=== PATIENT | male | born 2000 | race Caucasian/White ===

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

== ENCOUNTER → 2021-04-19 09:35 | Outpatient (CLI) | payer OTHER, SELFPAY | PROVIDERS: Visit Provider Nurse Practitioner | DX: Z20.822 Contact with and (suspected) exposure to COVID-19 (principal) | CPT/HCPCS: C9803; U0003; U0005 ==

== ENCOUNTER 2021-10-11 13:38 | Emergency (ER) | payer OTHER, SELFPAY ==
[2021-10-11 13:38] VITALS: BP 132/85; PULSE 94; RESP 19; TEMP 36.8; O2SAT 97; BMI 28.0
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
--- NOTE | 2021-10-11 13:42 | PC.NURSE ---
Notified rad of xray
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
--- NOTE | 2021-10-11 14:06 | PC.NURSE ---
Returned call to Rad to remind of Xray order on pt. They advised someone was on their way
--- NOTE | 2021-10-11 14:09 | PC.NURSE ---
Pt to rad
--- NOTE | 2021-10-11 14:48 | CT_ITS ---
FINAL REPORT CLINICAL HISTORY: trauma FINDINGS: CT RIGHT ANKLE WITHOUT CONTRAST TECHNIQUE: Axial, reformatted, and 3D images were obtained of the right ankle. This study was performed with techniques to keep radiation doses as low as reasonably achievable, (ALARA). Individualized dose reduction techniques using automated exposure control or adjustment of mA and/or kV according to the patient's size were employed. FINDINGS: There is a transverse fracture the medial malleolus with 4 mm of distraction. There is a small chip fracture along the medial border of the talus. No other fracture is identified. There is soft tissue swelling about the ankle. IMPRESSION: Fractures as above. Reviewed, Interpreted and Dictated by Adelso Chen III, MD Transcribed by Dulce Machado Authenticated by Adelso Chen III, MD on 10/11/2021 04:42:29 PM [facility]
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
--- NOTE | 2021-10-11 14:49 | PC.NURSE ---
rad notified of CT orders
[2021-10-11 14:53] VITALS: BP 147/79; PULSE 78; RESP 18; TEMP 36.8; O2SAT 98; BMI 28.0
--- NOTE | 2021-10-11 14:53 | PC.NURSE ---
MD at bedside speaking with patient and mother
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
[2021-10-11 15:20] LABS: Basophils # 0.1 K/mm3 (0-0.2); Basophils % 0.9 % (0.1-2.0); Eosinophils # 0.1 K/mm3 (0.0-0.4); Eosinophils % 0.9 % (0.1-12.0); Hematocrit 44.8 % (42.0-52.0); Hemoglobin 14.3 g/dL (14.1-18.0); Lymphocytes # 1.5 K/mm3 (0.7-4.5); Lymphocytes % 11.5 % (10-50); Mean Corpuscular Hemoglobin 28.7 pg (27.0-31.2); Mean Corpuscular Volume 89.7 fl (80-94); Monocytes # 0.7 K/mm3 (0.1-1.0); Monocytes % 5.4 % (1.7-9.3); Neutrophils # 10.6 K/mm3 (1.8-7.8); Neutrophils % 81.3 % (37.0-80.0); Platelet Count 409 K/mm3 (142-424); Red Blood Count 4.99 M/mm3 (4.60-6.20); White Blood Count 13.1 K/mm3 (4.5-13.0)
--- NOTE | 2021-10-11 15:27 | PC.NURSE ---
pt return from CT
[2021-10-11 15:31] VITALS: BP 110/89; PULSE 88; O2SAT 98
[2021-10-11 15:40] LABS: Anion Gap 12.8 mEq/L (5-15); Blood Urea Nitrogen 18 mg/dl (9-20); Calcium 9.5 mg/dl (8.4-10.2); Carbon Dioxide 27 mmol/L (22.0-30.0); Chloride 106 mmol/L (98-107); Creatinine Clearance Estimated 144 mL/min (50-200); Estimated Glomerular Filt Rate 95 ml/min (>60); GFR (African American) 115 ML/MIN (>60); Glucose 105 mg/dl (74-100); Potassium 3.8 mmoL/L (3.5-5.1); Sodium 142 mmol/L (136-145)
--- NOTE | 2021-10-11 15:48 | PC.NURSE ---
VAL SPENCER on phone with Dr. Jackson
[2021-10-11 16:00] VITALS: BP 116/74; PULSE 103; O2SAT 96
--- NOTE | 2021-10-11 16:05 | PC.NURSE ---
requested that radiology power share images to [facility], spoke with Felecia
--- NOTE | 2021-10-11 16:11 | PC.NURSE ---
contacting [facility] for possible transfer, on hold at this time
--- NOTE | 2021-10-11 16:28 | PC.NURSE ---
Dr. Wharton speaking with SAUNDRA Harrell with [facility]
[2021-10-11 16:30] VITALS: BP 117/73; PULSE 114; O2SAT 97
--- NOTE | 2021-10-11 16:44 | PC.NURSE ---
JAKY SPENCER at placing splint on pt jyotsna moctezuma assisting.
[2021-10-11 18:08] VITALS: BP 117/73; PULSE 114; RESP 16; TEMP 36.8; O2SAT 98
== END 2021-10-11 18:10 | disposition short-term general hospital (02) ==
LOC: UTC 13:41 → ER 14:37
PROVIDERS: Emergency Provider Emergency Medicine; PCP Family Medicine
DX: S82.51XA Displaced fracture of medial malleolus of right tibia, initial encounter for closed fracture (principal); S92.901A Unspecified fracture of right foot, initial encounter for closed fracture; W30.89XA Contact with other specified agricultural machinery, initial encounter; Y92.73 Farm field as the place of occurrence of the external cause
CPT/HCPCS: 29515; 73590; 73610; 73630; 73700; 80048; 85025; 96372; 96375; 96376; 99284; J2405

== ENCOUNTER → 2021-10-19 18:35 | Outpatient (CLI) | payer OTHER, SELFPAY | PROVIDERS: PCP Family Medicine | DX: Z01.812 Encounter for preprocedural laboratory examination (principal); Z11.52 Encounter for screening for COVID-19; S82.54XA Nondisplaced fracture of medial malleolus of right tibia, initial encounter for closed fracture | CPT/HCPCS: C9803; U0003; U0005 ==

== ENCOUNTER 2022-02-01 14:45 | Emergency (ER) | payer OTHER, SELFPAY ==
--- NOTE | 2022-02-01 14:48 | XR_ITS ---
FINAL REPORT CLINICAL HISTORY: FALL, POSTERIOR ANKLE PAIN FINDINGS: Right ankle Three views were obtained. Postoperative changes are identified. No soft tissue abnormality is identified. IMPRESSION: Postsurgical changes with no acute process. Reviewed, Interpreted and Dictated by Adelso Chen III, MD Transcribed by Nia Colon Authenticated and [facility]
--- NOTE | 2022-02-01 14:48 | XR_ITS ---
FINAL REPORT CLINICAL HISTORY: FALL, POSTERIOR ANKLE PAIN FINDINGS: Right foot Three views were obtained. There are postoperative changes of the midfoot, 1st, 2nd, and 3rd metatarsals and medial malleolus. The bones are osteopenic. IMPRESSION: Postsurgical changes as above. Reviewed, Interpreted and Dictated by Adelso Chen III, MD Transcribed by Nia Colon Authenticated and [facility]
[2022-02-01 14:50] VITALS: BP 155/95; PULSE 102; RESP 16; TEMP 36.8; O2SAT 98; BMI 28.8
--- NOTE | 2022-02-01 15:37 | HMH.EDUTC ---
[facility] Disposition Clinical Impression: Ankle pain Qualifiers: Chronicity: unspecified Laterality: right Qualified Code(s): M25.571 - Pain in right ankle and joints of right foot Disposition: Home, Self-Care Condition on Discharge: Good Additional Instructions: Wear walking boot as instructed Follow up with Your Orthopedic Doctor that did your surgery Return if needed Straight to ER if any life threatening symptoms Referrals: Kaur Graves MD [Primary Care Provider] - As needed Time of Disposition: 15:40 Medical Decision Making - Rickey Inquiry Pt receiving controlled substance: No Rcikey was queried for this patient: No Vital Signs: 02/01/22 14:50 Temperature 98.2 F Temperature Source Oral Pulse Rate [Right Brachial] 102 H Respiratory Rate 16 Blood Pressure [Right Arm] 155/95 H Blood Pressure Mean [Right Arm] 115 Blood Pressure Source [Right Arm] Automatic Cuff Blood Pressure Position [Right Arm] Sitting 02 Sat by Pulse Oximetry 98 Oxygen Delivery Method Room Air - Radiology Data #1 Image(s): Ankle Image Reviewed: Yes I have reviewed radiologist's interpretation IMPRESSION: Postsurgical changes with no acute process. #2 Image(s): Foot/Toes Image Reviewed: Yes I have reviewed radiologist's interpretation IMPRESSION: Postsurgical changes as above. [facility] HPI - General Stated complaint: Ankle pain Time Seen by Provider: 02/01/22 15:00 Mode of Arrival: Ambulatory Source of Information: Patient Limitations: No Limitations Description of Symptoms (Recalled from Triage Doc. by RN): PATIENT C/O RIGHT ANKLE PAIN AFTER FALLING ON SATURDAY AND FEELING A POP HEENT Symptoms (Recalled from RN notes): No Resp Symptoms (Recalled from RN notes): No Skin Symptoms (Recalled from RN notes): No MS Symptoms (Recalled from RN notes): Yes Functional Status (Recalled from RN notes): WNL - History of Present Illness Provider Complaint: Patient states that he fell on Saturday getting out the shoulder and felt a pop in his right ankle that he had surgery on a couple months ago States that since then he has been having pain and swelling and wanted to get it checked to make sure he didnt rebreak it - Related Data Allergies Allergy/AdvReac Type Severity Reaction Status Date / Time No Known Allergies Allergy Verified 02/01/22 15:07 - Worker's Comp Is this a Worker's Comp case?: No [facility] History - Hepatitis A Screen Attestation statement:: This patient has been screened for Hepatitis A risk factors. I have reviewed the patient's past medical history: Yes - Social History Alcohol Intake: never Occupational Status: other Housing: house ROS Obtained: Yes All systems reviewed & no additional complaints, Yes Systems reviewed as appropriate & no additional complaints - Constitutional Constitutional: Reports system reviewed and no additional complaints, except as docu - ENT Ears, Nose, Mouth, and Throat: Reports system reviewed and no additional complaints, except as docu - Cardiovascular Cardiovascular: Reports system reviewed and no additional complaints, except as docu - Respiratory Respiratory: Reports system reviewed and no additional complaints, except as docu - Gastrointestinal Gastrointestingal: Reports: system reviewed and no additional complaints, except as docu - Allergic/Immunologic Comments: Pain and swelling in right ankle after feeling a pop on Saturday Physical Exam - General General appearance: alert, in no apparent distress - Respiratory Respiratory exam: Present: normal lung sounds bilaterally. Absent: respiratory distress - Cardiovascular Cardiovascular exam: Present: regular rate, normal rhythm. Absent: JVD - Abdominal Exam Abdominal exam: Present: soft, normal bowel sounds. Absent: distention, tenderness, guarding - Expanded Lower Extremity Exam Right Ankle exam: Present: tenderness, swelling. Absent: erythema Foot/toe exam: Present
[2022-02-01 15:40] VITALS: BP 155/95; PULSE 102; RESP 16; TEMP 36.8; O2SAT 98
== END 2022-02-01 15:43 | disposition home or self-care (01) ==
PROVIDERS: Emergency Provider Nurse Practitioner; PCP Family Medicine
DX: M25.571 Pain in right ankle and joints of right foot (principal)
CPT/HCPCS: 73610; 73630; 99212; G0463

== ENCOUNTER 2022-04-09 16:00 | Outpatient (RCR) | payer OTHER, SELFPAY | END 2022-04-09 16:05 | disposition home or self-care (01) | LOC: PT 16:00 | PROVIDERS: PCP Family Medicine; Visit Provider Orthopaedic Surgery | DX: S92.901D Unspecified fracture of right foot, subsequent encounter for fracture with routine healing (principal); S82.54XA Nondisplaced fracture of medial malleolus of right tibia, initial encounter for closed fracture; S97.81XA Crushing injury of right foot, initial encounter | CPT/HCPCS: 97016; 97110; 97112; 97163; 97164; 97530 ==

== ENCOUNTER 2024-08-27 22:33 | Observation (INO) | payer BC, OTHER, SELFPAY ==
[2024-08-27 22:42] VITALS: BP 160/112; PULSE 109; RESP 16; TEMP 37.1; O2SAT 98; BMI 34.7
--- NOTE | 2024-08-27 22:45 | PC.NURSE ---
Pt awake alert and oriented Skin pink warm and dry Resp full and easy Speech clear and appropriate. Pt's urine tea colored Report to edda ALEXANDER
[2024-08-27 23:08] VITALS: BP 146/86; PULSE 101; O2SAT 98
[2024-08-27 23:20] LABS: Basophils # 0.1 K/mm3 (0-0.2); Basophils % 0.4 % (0.1-2.0); Eosinophils # 0.2 K/mm3 (0.0-0.4); Eosinophils % 1.3 % (0.1-12.0); Hematocrit 43.9 % (42.0-52.0); Hemoglobin 14.7 g/dL (14.1-18.0); Lymphocytes # 2.5 K/mm3 (0.7-4.5); Lymphocytes % 17.8 % (10-50); Mean Corpuscular HGB Conc 33.5 g/dL (31.8-35.4); Mean Corpuscular Hemoglobin 28.3 pg (27.0-31.2); Mean Corpuscular Volume 84.4 fl (80-94); Mean Platelet Volume 9.2 fl (7.4-10.4); Monocytes # 1.2 K/mm3 (0.1-1.0); Monocytes % 8.1 % (1.7-9.3); Neutrophils # 10.2 K/mm3 (1.8-7.8); Platelet Count 409 K/mm3 (142-424); Red Cell Distribution Width 13.2 % (11.5-17.5); White Blood Count 14.2 K/mm3 (4.8-10.8)
--- NOTE | 2024-08-27 23:20 | HMH.EDGENADL ---
Discharge Plan Disposition Patient Disposition: Admitted Clinical Impressions Clinical Impression: Rhabdomyolysis Discharge ED Provider: Tariq Bishop Adult HPI General Chief complaint: PAIN Stated complaint: Dark urine Time Seen by Provider: 08/27/24 22:37 Mode of Arrival: Ambulatory Source of Information: Patient Description of Symptoms (Recalled from ER Triage Doc. by RN): Pt started working out 3 days ago now has dark urine History of Present Illness HPI narrative: 24-year-old male without significant past medical history presents for dark urine. He has been working out for the last 3 days which is new for him. He does have some muscle soreness. He feels like he has been staying hydrated but says he has not upped his fluid intake since working out. He has worked out approximately an hour a day. He denies any urinary symptoms besides dark urine. No dysuria. No flank pain. He has not had any new or different medications besides his bupropion and hydroxyzine. Related Data Previous Rx's ?Medication ?Instructions ?Recorded hydroxyzine HCl 25 mg tablet 50 mg (2 x 25 mg) PO HS PRN 07/08/24 Sleep/anxiety #60 tabs bupropion HCl 100 mg tablet,12 hr 100 mg PO .Q Evening #90 ea 08/12/24 sustained-release (Wellbutrin SR) bupropion HCl 200 mg tablet,12 hr 200 mg PO QAM #90 ea 08/12/24 sustained-release Allergies Allergy/AdvReac Type Severity Reaction Status Date / Time No Known Allergies Allergy Verified 08/12/24 11:41 [facility] Disclaimer: The information contained in this section may have been updated after the patient was seen, as this information can be updated by other users. Medical History ADHD Depression Surgical History Hx of foot surgery Social History Smoking Status: Never smoker alcohol intake: former year quit: 2024 substance use type: denies use current occupational status: employed Travel in the last 8 weeks: None housing: house Have you lived/traveled outside US in past 30 days?: No Contact w/someone who lives/traveled outside US past 30 days?: No Exposure to someone with infectious disease in past 14 days?: No Do you have a fever (greater than 100.4 F or 38 C)?: No Have you tested positive for COVID-19: No Exposed to someone with COVID-19 in past 14 days?: No Do you have a sore throat?: No Do you have a cough?: No Do you have any weakness?: No Do you have any diarrhea?: No Are you experiencing any unusual bleeding?: No Do you have any muscle aches/pain?: No Do you have any abdominal pain?: No Are you experiencing loss of taste or smell?: No Other Medical History Have you received the Flu Vaccine for this season: No Have you received the Pneumonia Vaccine: No ROS Obtained: Yes All systems reviewed & no additional complaints except as documented Physical Exam General General appearance: alert and in no apparent distress Head Head exam: atraumatic and normocephalic Eye Eye exam: Present normal appearance, PERRL and EOMI ENT ENT exam: Present normal oropharynx and normal external ear exam Neck Neck exam: Present normal inspection and full ROM Chest Chest inspection: Present normal inspection and symmetric chest wall rise; Absent tenderness Respiratory Respiratory exam: Present normal lung sounds bilaterally; Absent respiratory distress Cardiovascular Cardiovascular exam: Present regular rate and normal rhythm Abdominal Exam Abdominal exam: Present soft; Absent distention, tenderness or guarding Extremities Exam Extremities exam: Present normal inspection; Absent edema or joint swelling Back Exam Back exam: Present normal inspection; Absent tenderness Neurological Exam Neurological exam: Present alert and oriented X3; Absent motor sensory deficit Psychiatric Psychiatric exam: Present normal affect and normal mood Skin Skin exam: Present warm, dry and normal color Lymphatic Lymphatic Findings: no adenopathy Medical Decision Making Medical Records Medical records reviewed: Yes I reviewed the patient's medical records. Screening: Per USPSTF and CDC recommendations, given the prevalence of disease in our region, it is our hospital?s policy to screen for HIV and viral Hepatitis for all patients aged 18 and over and those with ongoing risk factors. Rickey Inquiry Pt receiving controlled substance: No Rickey was queried for this patient: No Vital Signs: 08/27/24 22:42 08/27/24 23:08 08/27/24 23:08 Temperature 98.8 F Temperature Source Oral Pulse Rate 101 H Pulse Rate [Right Brachial] 109 H Respiratory Rate 16 Blood Pressure 146/86 H Blood Pressure [Right Radial Artery] 160/112 H Blood Pressure Mean 106 Blood Pressure Mean [Right Radial Artery] 128 Blood Pressure Source [Right Radial Artery] Automatic Cuff Blood Pressure Position Blood Pressure Position [Right Radial Artery] Sitting 02 Sat by Pulse Oximetry 98 98 Oxygen Delivery Method 08/27/24 23:57 08/28/24 00:00 08/28/24 00:31 Temperature Temperature Source Pulse Rate 94 H 94 H 84 Pulse Rate [Right Brachial] Respiratory Rate Blood Pressure 148/106 H 163/101 H 160/103 H Blood Pressure [Right Radial Artery] Blood Pressure Mean Blood Pressure Mean [Right Radial Artery] Blood Pressure Source [Right Radial Artery] Blood Pressure Position Blood Pressure Position [Right Radial Artery] 02 Sat by Pulse Oximetry 98 98 98 Oxygen Delivery Method Room Air Room Air Room Air 08/28/24 00:48 Temperature 98 F Temperature Source Pulse Rate 78 Pulse Rate [Right Brachial] Respiratory Rate 14 Blood Pressure 160/104 H Blood Pressure [Right Radial Artery] Blood Pressure Mean Blood Pressure Mean [Right Radial Artery] Blood Pressure Source [Right Radial Artery] Blood Pressure Position Sitting Blood Pressure Position [Right Radial Artery] 02 Sat by Pulse Oximetry Oxygen Delivery Method Room Air Lab Data Lab results reviewed: Yes I reviewed the patient's lab results. Lab Results 08/27/24 22:40: Urine Color Red, Urine Appearance Clear, Urine pH 6.0, Ur Specific [place] >= 1.030, Urine Protein 2+ A, Urine Glucose (UA) Negative, Urine Ketones 1+, Urine Blood 3+ A, Urine Nitrate Negative, Urine Bilirubin Negative, Urine Urobilinogen 0.2, Ur Leukocyte Esterase Negative, Urine RBC 3-5, Urine WBC Occasional, Ur Squamous Epith Cells 3-5, Urine Bacteria 4+, Urine Mucus 1+ 08/27/24 23:05: WBC 14.2 H, RBC 5.20, Hgb 14.7, Hct 43.9, MCV 84.4, MCH 28.3, MCHC 33.5, RDW 13.2, Plt Count 409, MPV 9.2, Neut % (Auto) 72.0, Lymph % (Auto) 17.8, [place] % (Auto) 8.1, Eos % (Auto) 1.3, Baso % (Auto) 0.4, Neut # (Auto) 10.2 H, Lymph # (Auto) 2.5, [place] # (Auto) 1.2 H, Eos # (Auto) 0.2, Baso # (Auto) 0.1, Sodium 136, Potassium 3.5, Chloride 104, Carbon Dioxide 25, Anion Gap 10.5, BUN 20, Creatinine 1.10, Estimated Creat Clear 144, Estimated GFR 83, Est GFR ( Amer) 100, Glucose 99, Calcium 9.3, Total Bilirubin 0.5, AST 711 H*, ALT 184 H, Alkaline Phosphatase 80, Total Creatine Kinase 68717 H*, Total Protein 7.6, Albumin 5.0, Globulin 2.6, Albumin/Globulin Ratio 1.9 H, Lipase 78 08/27/24 23:05 08/27/24 23:05 Orders (Tests/Meds): ED MEDICATIONS Generic Name Dose Route Start Last Admin Trade Name Freq PRN Reason Stop Dose Admin Lactated Ringer's 1,000 mls @ 999 mls/hr 08/27/24 23:45 08/27/24 23:54 Lactated Ringer's 1000 Ml Bag IV 08/28/24 01:45 999 mls/hr .Q1H1M KALIE Administration Discontinued Medications Generic Name Dose Route Start Last Admin Trade Name Freq PRN Reason Stop Dose Admin Hydroxyzine Pamoate 25 mg 08/27/24 23:58 08/28/24 00:00 Hydroxyzine Pamoate 25mg Capsule PO 08/27/24 23:59 25 mg ONCE ONE Administration ORDERS Category Date Time Status CBC w/Auto Diff [Complete Blood Count Auto Diff] Stat Lab 08/27/24 23:05 Completed CK [Creatine Kinase] Stat Lab 08/27/24 23:05 Completed CMP [Comprehensive Metabolic Panel] Stat Lab 08/27/24 23:05 Completed Hepatitis Panel Stat Lab 08/27/24 23:05 Received Lipase Stat Lab 08/27/24 23:05 Completed UA [Urinalysis and Microscopic] Stat Lab 08/27/24 22:40 Completed Urine Culture Stat Micro 08/27/24 22:40 Received Medical Decision Narrative: 24-year-old male without significant past medical history presents for dark urine after working out for about an hour at a time the last 3 days. History was obtained via interactive discussion with patient, family. On arrival, patient is [afebrile, hemodynamically stable, satting appropriately, alert, oriented x4, GCS 15], moving all extremities spontaneously. Full physical exam performed and significant for no significant physical exam abnormalities. Differential includes but is not limited to hematuria, rhabdo, MACO, hyperbilirubinemia, dehydration. Workup initiated including CBC CMP CK UA. On re-evaluation, patient [remains afebrile, HD stable.] Laboratory workup independently interpreted by me and significant for marked elevation in AST, over 700, CK greater than 87,000, creatinine normal, urine consistent with rhabdo. Given patient history, exam and workup, patient's presentation most likely represents acute rhabdomyolysis. Patient is initiated on IV fluid resuscitation with 2 L of LR ordered. Interactive discussion was had with hospitalist on-call for admission. Procedures Risk/Benefits of Procedure(s) Were Explained: Yes Critical Care Critical Care Time Critical Care Time: No
[2024-08-27 23:34] LABS: Chloride 104 mmol/L (98-107); Potassium 3.5 mmoL/L (3.5-5.1); Sodium 136 mmol/L (136-145)
[2024-08-27 23:35] LABS: Microscopic, Urine URINE MICROSCOPIC (MICROSCOPIC)
[2024-08-27 23:36] LABS: Blood Urea Nitrogen 20 mg/dl (9-20); Creatinine Clearance Estimated 144 mL/min (50-200); Estimated Glomerular Filt Rate 83 ml/min (>60); GFR (African American) 100 ML/MIN (>60)
[2024-08-27 23:37] LABS: Alanine Aminotransferase 184 U/L (12-78); Albumin/Globulin Ratio 1.9 (1.1-1.8); Alkaline Phosphatase 80 U/L (38-126); Anion Gap 10.5 mEq/L (5-15); Aspartate Amino Transferase 711 U/L (17-59); Bilirubin,Total 0.5 mg/dl (0.2-1.3); Calcium 9.3 mg/dl (8.4-10.2); Carbon Dioxide 25 mmol/L (22.0-30.0); Globulin 2.6 g/dL (1.3-3.2); Glucose 99 mg/dl (74-100); Total Protein,Serum 7.6 g/dl (6.3-8.2)
[2024-08-27 23:37] LABS: Appearance,Urine CLEAR (Clear); Blood, Urine 3+ (Negative); Glucose,Urine (UA) Negative (Negative); Ketones,Urine 1+ (Negative); Leukocyte Esterase,Urine Negative (Negative); Nitrate,Urine Negative (Negative); Protein,Urine 2+ (Negative); Specific Gravity, Urine >= 1.030 (1.005-1.030); Urobilinogen,Urine 0.2 EU/dl (0.2)
--- NOTE | 2024-08-27 23:40 | PC.NURSE ---
Critical lab value reviewed with Dr Bishop.
[2024-08-27 23:43] LABS: Bilirubin,Urine Negative (Negative); Color,Urine Red (Yellow)
[2024-08-27] MEDS: LACTATED RINGERS 1000ML 1,000 ML 999 ML IV (23:54)
[2024-08-27 23:57] VITALS: BP 148/106; PULSE 94; O2SAT 98
[2024-08-28] VITALS (9 sets, daily range): BP systolic 137–163; BP diastolic 68–108; PULSE 68–94; RESP 14–18; TEMP 36.3–37.4; O2SAT 90–98; BMI 32.2; BMI 32.8
[2024-08-28] LABS: Lipase 78 U/L (23-300)
[2024-08-28] MEDS: hydrOXYzine pamoate 25MG CAPSULE 25 MG PO
[2024-08-28 00:02] LABS: Bacteria,Urine 4+ /lpf; Mucus,Urine 1+ /lpf; WBC,Urine Occasional #/hpf (0-3)
--- NOTE | 2024-08-28 00:48 | PC.NURSE ---
report given to oJdy RN on the floor.
[2024-08-28 00:50] LABS: Creatine Kinase 87933 U/L (55-170)
[2024-08-28] MEDS: LACTATED RINGERS 1000ML 1,000 ML 999 ML IV (01:26)
--- NOTE | 2024-08-28 02:23 | P.HP_ITS ---
History of Present Illness *Admission Date: 08/28/24 *Reason for visit:: Rhabdomylosis *History of present illness: A 24-year-old male with no significant past medical history presents to the emergency department with dark urine for the past 3 days. He reports starting a new exercise routine, working out for approximately 1 hour daily over this period, which is a departure from his usual activity level. He endorses associated muscle soreness but denies urinary symptoms such as dysuria or flank pain. The patient believes he has maintained adequate hydration but notes he has not increased his fluid intake despite the recent physical exertion. He takes bupropion and hydroxyzine regularly and denies any new medications or supplements. The history was obtained through interactive discussion with the patient and family. On arrival, the patient is afebrile, hemodynamically stable, with appropriate oxygen saturation, alert, oriented x4, and has a Osgood Coma Scale score of 15. He is moving all extremities spontaneously. A full physical exam was performed and notable for no significant abnormalities. The differential diagnosis includes hematuria, rhabdomyolysis, acute kidney injury (MACO), hyperbilirubinemia, and dehydration. Workup was initiated with a complete blood count (CBC), comprehensive metabolic panel (CMP), creatine kinase (CK), and urinalysis (UA). Laboratory results reveal a white blood cell count of 14.2 K/?L (neutrophils 10.2 K/?L, monocytes 1.2 K/?L), AST 711 U/L, ALT 184 U/L, creatinine kinase 87,933 U/L, albumin 1.9 g/dL, urine protein 2+, and urine blood 3+. All other lab findings, including renal function (e.g., creatinine, BUN), electrolytes, and additional liver function tests, were within normal limits.The patient will require admission for fluid management and monitoring. Patient is agreeable to plan. [facility] Disclaimer: The information contained in this section may have been updated after the patient was seen, as this information can be updated by other users. Medical History ADHD Depression Surgical History Hx of foot surgery Social History (Reviewed 08/28/24 @ 02:26 by OCTAVIANO Nix Smoking Status: Current some day smoker tobacco type: e-cigarettes alcohol intake: former year quit: 2024 substance use type: denies use current occupational status: employed Travel in the last 8 weeks: None housing: house Have you lived/traveled outside US in past 30 days?: No Contact w/someone who lives/traveled outside US past 30 days?: No Exposure to someone with infectious disease in past 14 days?: No Do you have a fever (greater than 100.4 F or 38 C)?: No Have you tested positive for COVID-19: No Exposed to someone with COVID-19 in past 14 days?: No Do you have a sore throat?: No Do you have a cough?: No Do you have any weakness?: No Do you have any diarrhea?: No Are you experiencing any unusual bleeding?: No Do you have any muscle aches/pain?: No Do you have any abdominal pain?: No Are you experiencing loss of taste or smell?: No Other Medical History Have you received the Flu Vaccine for this season: No Have you received the Pneumonia Vaccine: No Review of Systems Review of Systems Review of systems (narrative): 13 point review of systems negative except as listed in HPI Meds Home Medications and Allergies Home Medications ?Medication ?Instructions ?Recorded ?Confirmed ?Type bupropion HCl 100 mg tablet,12 hr 100 mg PO PM 08/28/24 08/28/24 History sustained-release (Wellbutrin SR) bupropion HCl 200 mg tablet,12 hr 200 mg PO AM 08/28/24 08/28/24 History sustained-release hydroxyzine HCl 25 mg tablet 25 - 50 mg PO HS PRN Sleep/anxiety 08/28/24 08/28/24 History New Prescriptions to Start Prescriptions: Allergies Allergy/AdvReac Type Severity Reaction Status Date / Time No Known Allergies Allergy Verified 08/12/24 11:41 Exam Data for Last 24 hours Vital signs and Labs for Last 24 Hours: Temp Pulse Resp BP Pulse Ox O2 Del Method 97.9 F 94 H 16 149/108 H 98 Room Air 08/28/24 01:08 08/28/24 01:08 08/28/24 01:08 08/28/24 01:08 08/28/24 01:08 08/28/24 01:08 Laboratory Results - last 24 hr 08/27/24 22:40: Urine Color Red, Urine Appearance Clear, Urine pH 6.0, Ur Specific [place] >= 1.030, Urine Protein 2+ A, Urine Glucose (UA) Negative, Urine Ketones 1+, Urine Blood 3+ A, Urine Nitrate Negative, Urine Bilirubin Negative, Urine Urobilinogen 0.2, Ur Leukocyte Esterase Negative, Urine RBC 3-5, Urine WBC Occasional, Ur Squamous Epith Cells 3-5, Urine Bacteria 4+, Urine Mucus 1+ 08/27/24 23:05: WBC 14.2 H, RBC 5.20, Hgb 14.7, Hct 43.9, MCV 84.4, MCH 28.3, MCHC 33.5, RDW 13.2, Plt Count 409, MPV 9.2, Neut % (Auto) 72.0, Lymph % (Auto) 17.8, [place] % (Auto) 8.1, Eos % (Auto) 1.3, Baso % (Auto) 0.4, Neut # (Auto) 10.2 H, Lymph # (Auto) 2.5, [place] # (Auto) 1.2 H, Eos # (Auto) 0.2, Baso # (Auto) 0.1, Sodium 136, Potassium 3.5, Chloride 104, Carbon Dioxide 25, Anion Gap 10.5, BUN 20, Creatinine 1.10, Estimated Creat Clear 144, Estimated GFR 83, Est GFR ( Amer) 100, Glucose 99, Calcium 9.3, Total Bilirubin 0.5, AST 711 H*, ALT 184 H, Alkaline Phosphatase 80, Total Creatine Kinase 69133 H*, Total Protein 7.6, Albumin 5.0, Globulin 2.6, Albumin/Globulin Ratio 1.9 H, Lipase 78 I & O for Last 24 hours: Intake & Output 08/25/24 08/26/24 08/27/24 08/28/24 23:59 23:59 23:59 23:59 Weight 97.522 kg 90.9 kg Constitutional Constitutional: no acute distress *Routine HEENT Exam Head: Present normocephalic Eye: Present EOMI and PERRL ENT: Present mucous membranes moist *Routine Neck Exam Neck: Present supple; Absent lymphadenopathy *Routine Respiratory Exam Respiratory: Present CTA bilaterally *Routine Cardiovascular Exam Cardiovascular: Present RRR *Routine Abdominal Exam Abdominal: Present soft and normoactive bowel sounds; Absent tenderness *Routine Rectal Exam Rectal:: deferred *Routine Genitalia Exam Genitalia:: deferred *Routine Extremities Exam Extremities: Absent cyanosis, clubbing or edema *Routine Skin Exam Skin: Present warm; Absent rash *Routine Neurological Exam Neurological: Present alert and oriented X3 Assessment and Plan *Assessment and plan (1) Rhabdomyolysis: Status: Acute Category: Medical Code(s): M62.82 - Rhabdomyolysis (2) ADHD: Status: Acute Category: Medical Code(s): F90.9 - Attention-deficit hyperactivity disorder, unspecified type (3) Depression: Status: Acute Category: Medical Code(s): F32.A - Depression, unspecified Plan * Rhabdomyolysis * Dark urine x 3 days, new exercise (1 hr/day x 3 days), muscle soreness, CK 87,933 U/L, urine blood 3+ (likely myoglobin), urine protein 2+, AST 711 U/L, ALT 184 U/L. * Triggered by unaccustomed exertion; no MACO yet (normal creatinine), but high risk due to CK >50,000 U/L. * Continuous telemetry, daily weights, strict I/Os with Lou. * IV normal saline 200-400 mL/hr, target urine output 200-300 mL/hr; taper to 100-150 mL/hr when urine clears and CK <10,000 U/L. * BMP, CK, calcium, phosphorus q6-8h x 48h, then q12h; UA q8h to track myoglobinuria. * If urine pH <6.5, add sodium bicarbonate (150 mEq in 1 L D5W at 100 mL/hr) for pH >6.5; stop if pH >7.5 or hypocalcemia. * Acetaminophen 650 mg PO q6h PRN; avoid NSAIDs. * Encourage bed rest until CK <5,000 U/L; PT consult for reconditioning later. * Leukocytosis * WBC 14.2 K/?L, neutrophils 10.2 K/?L, monocytes 1.2 K/?L; likely stress response, not infection * CBC q24h x 2 days; no infectious workup unless fever/symptoms develop. * Hypoalbuminemia * Albumin 1.9 g/dL; possibly dilutional or inflammatory, unclear etiology. * Repeat albumin with CMP q24h x 2 days; no acute intervention, reassess nutrition if persistent. * General Care * Healthy 24-year-old male, on bupropion and hydroxyzine, admitted for rhabdomyolysis management. * Continue bupropion and hydroxyzine; query supplements (e.g., creatine). * Heparin 5000 U SQ q8h for DVT prophylaxis; pantoprazole 40 mg PO daily if prolonged stay. * High-fluid PO intake (2-3 L/day) once tolerating; standard diet. * Admit to telemetry; discharge when CK <5,000 U/L, urine clear, normal labs x 24h. * hiv counselor on gradual exercise and hydration. Disposition: * Admit to telemetryfor hydration and monitoring given MACO risk; ICU if complications arise. Addendum added by Venkata Dejesus MD at 10:10 AM. - Rounded on patient after nurse practitioner. Personally examined and interviewed patient. Agree with exam findings and care plan as documented. Patient has no muscle pain on palpation in arms, chest, thighs. Urine has transition to light yellow/clear at this time. Denies any fever, chill, illness or infections recently. Does report that he drinks occasionally, had a few Smirnoff's this week. 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 Review of meds does not show a clear etiology for rhabdo. Does not do any drugs. No supplements or stimulants per her report. No trauma or crush injuries. Will continue to monitor as above per [employer] documentation with CK and BMP every 6 hours. Review of labs this morning shows kidney function remains normal BUN 17, creatinine 0.9. Potassium 3.6. Continuing IV fluids at 200 cc an hour pending repeat CK. Hydrating orally very well at this time.
[2024-08-28] MEDS: 0.9 % SODIUM CHLORIDE 1000ML 1,000 ML 200 ML IV ×3 (02:30→13:12)
--- NOTE | 2024-08-28 03:06 | PC.NURSE ---
Mr Naeem Hyde was newly admitted on behalf of the documented diagnosis rhabdomyolysis. Creatine Kinase: 87,933. Patient is pleasantly alert and oriented x4. He stated that he had recently started a new exercise regimen without adjusting his fluid intake, and he started to notice voiding dark, tea-colored urine after a couple days in. The patient did not express any significant muscle pain upon assessment and denies painful urination + bladder/flank discomfort at this time. Upon arrival to the floor, 2 L of Lactated Ringers finished infusing. An order for normal saline to be infused at 200 mL/hr per MAR was started after the completion of LR. Oral fluid intake was also encouraged for additional intense hydration. Laci WEIR recommended a current goal of 200 mL/hr for urine output. The patient verbalized an understanding of using the urinal at the bedside for strict documentation, as well as maintaining bed rest per the hospitalist's request. Patient's baseline mobility status is independent + full range of motion without difficulties. Concise monitoring of intake/output initiated this shift. Admission assessment and home medication reconciliation was completed by me this shift. Auscultation of his lungs and bowels were within normal findings; however, an irregular rate was heard upon auscultation of his heart. Patient was unsure of when his last bowel movement occurred. Blood pressures have been elevated this shift. At this time, the patient is resting supine in bed without any complaints. No new needs at this time. Call light within reach.
[2024-08-28 05:55] LABS: Basophils # 0.1 K/mm3 (0-0.2); Basophils % 0.5 % (0.1-2.0); Eosinophils # 0.2 K/mm3 (0.0-0.4); Eosinophils % 1.9 % (0.1-12.0); Hemoglobin 13.4 g/dL (14.1-18.0); Lymphocytes # 2.7 K/mm3 (0.7-4.5); Lymphocytes % 26.8 % (10-50); Mean Corpuscular HGB Conc 33.5 g/dL (31.8-35.4); Mean Corpuscular Hemoglobin 28.6 pg (27.0-31.2); Mean Corpuscular Volume 85.3 fl (80-94); Mean Platelet Volume 9.3 fl (7.4-10.4); Monocytes # 0.8 K/mm3 (0.1-1.0); Monocytes % 8.1 % (1.7-9.3); Neutrophils # 6.3 K/mm3 (1.8-7.8); Neutrophils % 62.4 % (37.0-80.0); Platelet Count 363 K/mm3 (142-424); Red Blood Count 4.69 M/mm3 (4.60-6.20); Red Cell Distribution Width 13.3 % (11.5-17.5); White Blood Count 10.1 K/mm3 (4.8-10.8)
[2024-08-28 06:11] LABS: Anion Gap 7.6 mEq/L (5-15); Blood Urea Nitrogen 17 mg/dl (9-20); Calcium 8.8 mg/dl (8.4-10.2); Carbon Dioxide 26 mmol/L (22.0-30.0); Chloride 111 mmol/L (98-107); Creatinine Clearance Estimated 167 mL/min (50-200); Estimated Glomerular Filt Rate 105 ml/min (>60); GFR (African American) 127 ML/MIN (>60); Glucose 106 mg/dl (74-100); Potassium 3.6 mmoL/L (3.5-5.1); Sodium 141 mmol/L (136-145)
[2024-08-28 06:43] LABS: Magnesium 1.9 mg/dl (1.6-2.3)
--- NOTE | 2024-08-28 07:14 | HMH.PHAINT1 ---
Pharmacy Intervention Comments: verified home medication list with home pharmacy
[2024-08-28 11:09] LABS: Blood Urea Nitrogen 16 mg/dl (9-20); Calcium 8.7 mg/dl (8.4-10.2); Carbon Dioxide 26 mmol/L (22.0-30.0); Chloride 110 mmol/L (98-107); Creatinine Clearance Estimated 167 mL/min (50-200); Estimated Glomerular Filt Rate 105 ml/min (>60); GFR (African American) 127 ML/MIN (>60); Glucose 85 mg/dl (74-100); Sodium 140 mmol/L (136-145)
[2024-08-28 13:11] LABS: Creatine Kinase 59674 U/L (55-170)
[2024-08-28 13:12] LABS: Creatine Kinase 56422 U/L (55-170)
[2024-08-28 17:52] LABS: Alanine Aminotransferase 179 U/L (12-78); Albumin Level 4.3 g/dl (3.5-5.0); Alkaline Phosphatase 66 U/L (38-126); Anion Gap 10.8 mEq/L (5-15); Aspartate Amino Transferase 541 U/L (17-59); Bilirubin,Total 0.2 mg/dl (0.2-1.3); Blood Urea Nitrogen 13 mg/dl (9-20); Calcium 8.7 mg/dl (8.4-10.2); Carbon Dioxide 25 mmol/L (22.0-30.0); Chloride 110 mmol/L (98-107); Creatinine Clearance Estimated 188 mL/min (50-200); Estimated Glomerular Filt Rate 120 ml/min (>60); GFR (African American) 145 ML/MIN (>60); Globulin 2.2 g/dL (1.3-3.2); Glucose 116 mg/dl (74-100); Potassium 3.8 mmoL/L (3.5-5.1); Sodium 142 mmol/L (136-145); Total Protein,Serum 6.5 g/dl (6.3-8.2)
[2024-08-28 18:14] LABS: Creatine Kinase 48093 U/L (55-170)
--- NOTE | 2024-08-28 19:47 | PC.NURSE ---
decreased NS to 100ml/hr per MAR. Patient reports no pain and light yellow, clear urine at this time.
[2024-08-28] MEDS: 0.9 % SODIUM CHLORIDE 1000ML 1,000 ML 100 ML IV (20:30)
[2024-08-29 04:00] VITALS: BP 131/69; PULSE 73; RESP 16; TEMP 36.4; O2SAT 100; BMI 33.5
--- NOTE | 2024-08-29 05:38 | PC.NURSE ---
patient has denies pain or issues tonight. Rested well in his room. fluids infusing at 100ml/hr.
[2024-08-29] MEDS: 0.9 % SODIUM CHLORIDE 1000ML 1,000 ML 100 ML IV (06:10)
[2024-08-29 08:00] VITALS: BP 138/98; PULSE 70; RESP 20; TEMP 36.5; O2SAT 98
[2024-08-29] MEDS: buPROPion HCL 100 MG TABLET PO (08:18)
--- NOTE | 2024-08-29 08:25 | PC.NURSE ---
pts urine is clear,pale yellow. he states it is a huge improvement from initially
[2024-08-29 09:05] LABS: Basophils % 0.7 % (0.1-2.0); Eosinophils # 0.2 K/mm3 (0.0-0.4); Hematocrit 43.9 % (42.0-52.0); Hemoglobin 14.1 g/dL (14.1-18.0); Lymphocytes % 35.6 % (10-50); Mean Corpuscular HGB Conc 32.1 g/dL (31.8-35.4); Mean Corpuscular Hemoglobin 28.4 pg (27.0-31.2); Mean Corpuscular Volume 88.3 fl (80-94); Monocytes # 0.5 K/mm3 (0.1-1.0); Monocytes % 8.2 % (1.7-9.3); Neutrophils # 2.8 K/mm3 (1.8-7.8); Neutrophils % 51.3 % (37.0-80.0); Platelet Count 271 K/mm3 (142-424); Red Blood Count 4.97 M/mm3 (4.60-6.20); Red Cell Distribution Width 13.8 % (11.5-17.5); White Blood Count 5.5 K/mm3 (4.8-10.8)
[2024-08-29 09:14] LABS: HBsAg Screen Negative (Negative); HCV Ab Non Reactive (Non Reactive); Hep A Ab, IGM Negative (Negative); Hep B Core Ab, IgM Negative (Negative)
[2024-08-29 09:23] LABS: Magnesium 1.8 mg/dl (1.6-2.3)
[2024-08-29 09:24] LABS: Alanine Aminotransferase 181 U/L (12-78); Albumin Level 4.6 g/dl (3.5-5.0); Albumin/Globulin Ratio 1.7 (1.1-1.8); Alkaline Phosphatase 143 U/L (38-126); Anion Gap 13.4 mEq/L (5-15); Aspartate Amino Transferase 452 U/L (17-59); Bilirubin,Total 1.1 mg/dl (0.2-1.3); Blood Urea Nitrogen 10 mg/dl (9-20); Calcium 9.3 mg/dl (8.4-10.2); Carbon Dioxide 20 mmol/L (22.0-30.0); Chloride 109 mmol/L (98-107); Creatinine Clearance Estimated 171 mL/min (50-200); Estimated Glomerular Filt Rate 105 ml/min (>60); GFR (African American) 127 ML/MIN (>60); Globulin 2.7 g/dL (1.3-3.2); Glucose 94 mg/dl (74-100); Potassium 4.4 mmoL/L (3.5-5.1); Sodium 138 mmol/L (136-145); Total Protein,Serum 7.3 g/dl (6.3-8.2)
[2024-08-29 09:55] LABS: Creatine Kinase 28742 U/L (55-170)
--- NOTE | 2024-08-29 11:30 | P.DS_ITS ---
General Admission date:: 08/28/24 Discharge date: 08/29/24 HPI HPI HPI: A 24-year-old male with no significant past medical history presents to the emergency department with dark urine for the past 3 days. He reports starting a new exercise routine, working out for approximately 1 hour daily over this period, which is a departure from his usual activity level. He endorses associated muscle soreness but denies urinary symptoms such as dysuria or flank pain. The patient believes he has maintained adequate hydration but notes he has not increased his fluid intake despite the recent physical exertion. He takes bupropion and hydroxyzine regularly and denies any new medications or supplements. The history was obtained through interactive discussion with the patient and family. On arrival, the patient is afebrile, hemodynamically stable, with appropriate oxygen saturation, alert, oriented x4, and has a [place] Coma Scale score of 15. He is moving all extremities spontaneously. A full physical exam was performed and notable for no significant abnormalities. The differential diagnosis includes hematuria, rhabdomyolysis, acute kidney injury ([place]), hyperbilirubinemia, and dehydration. Workup was initiated with a complete blood count (CBC), comprehensive metabolic panel (CMP), creatine kinase (CK), and urinalysis (UA). Laboratory results reveal a white blood cell count of 14.2 K/?L (neutrophils 10.2 K/?L, monocytes 1.2 K/?L), AST 711 U/L, ALT 184 U/L, creatinine kinase 87,933 U/L, albumin 1.9 g/dL, urine protein 2+, and urine blood 3+. All other lab findings, including renal function (e.g., creatinine, BUN), electrolytes, and additional liver function tests, were within normal limits.The patient will require admission for fluid management and monitoring. Patient is agreeable to plan. Hospital Course Hospital Course Hospital Course: Mr. Hyde is a 24-year-old male who presented with dark urine x 3 days and concern for rhabdomyolysis. CK was elevated at approximately 88,000 on presentation. Kidney function normal however. Admitted for IV fluids and further management. Overall did well with no signs of muscle pain. Independently mobile. Tolerating p.o. fluids. Having consistent improvement in CK with persistent normal kidney function and clear urine. Will discharge home with close follow-up and repeat labs in the coming days. Problems addressed as follows: Rhabdomyolysis - Dark urine x 3 days, new exercise (1 hr/day x 3 days), muscle soreness, CK 87,933 U/L, urine blood 3+ (likely myoglobin), urine protein 2+, AST 711 U/L, ALT 184 U/L. Suspected trigger of physical exertion with work, increased activity playing basketball at work, and working out the past several days with weight lifting that is a new regimen for him. Kidney function normal. Urine initially tea colored on presentation. Started on IV fluids. Showed continued improvement. CK continued to decrease, down to 28,000 on morning of discharge. Kidney function remained normal with BUN 10, creatinine 0.9. Urine clear on day of discharge. Liver enzymes showing improvement, AST 452, ALT 181, alk phos 143 on morning of discharge. Suspect liver enzyme elevations are actually transaminases from muscle injury. Patient had no abdominal pain or muscle pain on palpation or exam during hospitalization. Independently mobile. Overall doing well. Recommend continued rest for the next 2 days and light duty at work for the next week. Will have repeat CK and CMP in 24 to 48 hours to monitor sta bility of kidney function and continued improvement of muscle enzymes. Tolerating good p.o. fluids. Continue to encourage aggressive oral hydration. Leukocytosis: Unclear etiology. No signs of infection. Likely stress response. Normalized to 5.5 with hemoglobin of 14 by morning of discharge. No indication for antibiotics at this time Extensive discussion with patient and parents on day of discharge. Mom is a nurse. Feels comfortable taking him home and continuing to monitor at home. Counseled on reasons to return to the hospital which include muscle pain, weakness, urine becoming dark/cola colored. Questions answered. Total time spent on discharge 32 minutes in counseling, documentation, chart review, and direct care with patient. Exam Data for Last 24 hours Vital signs and Labs for Last 24 Hours: Temp Pulse Resp BP Pulse Ox O2 Del Method 97.7 F 70 20 138/98 H 98 Room Air 08/29/24 08:00 08/29/24 08:00 08/29/24 08:00 08/29/24 08:00 08/29/24 08:00 08/29/24 09:00 Laboratory Results - last 24 hr 08/27/24 23:05: Hepatitis A IgM Ab Negative, Hep Bs Antigen Negative, Hep B Core IgM Ab Negative, Hepatitis C Antibody Non reactive, HCV RNA PCR Test Info Comment 08/28/24 05:35: Total Creatine Kinase 01315 H* 08/28/24 10:50: Sodium 140, Potassium 4.0, Chloride 110 H, Carbon Dioxide 26, Anion Gap 8.0, BUN 16, Creatinine 0.90, Estimated Creat Clear 167, Estimated GFR 105, Est GFR ( Amer) 127, Glucose 85, Calcium 8.7, Total Creatine Kinase 51389 H* 08/28/24 17:30: Sodium 142, Potassium 3.8, Chloride 110 H, Carbon Dioxide 25, Anion Gap 10.8, BUN 13, Creatinine 0.80, Estimated Creat Clear 188, Estimated GFR 120, Est GFR ( Amer) 145, Glucose 116 H D, Calcium 8.7, Total Bilirubin 0.2, AST 541 H*, ALT 179 H, Alkaline Phosphatase 66, Total Creatine Kinase 08125 H*, Total Protein 6.5, Albumin 4.3 D, Globulin 2.2, Albumin/Globulin Ratio 2.0 H 08/29/24 08:37: WBC 5.5 D, RBC 4.97, Hgb 14.1, Hct 43.9, MCV 88.3, MCH 28.4, MCHC 32.1, RDW 13.8, Plt Count 271 D, MPV 10.0, Neut % (Auto) 51.3, Lymph % (Auto) 35.6, Atlantic % (Auto) 8.2, Eos % (Auto) 4.0, Baso % (Auto) 0.7, Neut # (Auto) 2.8, Lymph # (Auto) 2.0, [place] # (Auto) 0.5, Eos # (Auto) 0.2, Baso # (Auto) 0.0, Sodium 138, Potassium 4.4, Chloride 109 H, Carbon Dioxide 20 L, Anion Gap 13.4, BUN 10, Creatinine 0.90, Estimated Creat Clear 171, Estimated GFR 105, Est GFR ( Amer) 127, Glucose 94, Calcium 9.3, Magnesium 1.8, Total Bilirubin 1.1, AST 452 H*, ALT 181 H, Alkaline Phosphatase 143 H, Total Creatine Kinase 13281 H*, Total Protein 7.3, Albumin 4.6, Globulin 2.7, Albumin/Globulin Ratio 1.7 I & O for Last 24 hours: Intake & Output 08/26/24 08/27/24 08/28/24 08/29/24 23:59 23:59 23:59 23:59 Intake Total 2554 / 2554 1433 / 1433 Output Total 5300 / 5300 2200 / 2200 Balance -2746 / -2746 -767 / -767 Weight 97.522 kg 92.533 kg 94.461 kg Constitutional Constitutional: no acute distress and cooperative *Routine HEENT Exam Head: Present normocephalic Eye: Present EOMI and PERRL ENT: Present mucous membranes moist *Routine Neck Exam Neck: Present supple; Absent lymphadenopathy Routine Chest/Breast/Axilla Exam Chest wall: Absent tenderness *Routine Respiratory Exam Respiratory: Present CTA bilaterally and normal respiratory effort; Absent accessory muscle use, rhonchi, wheezes or crackles *Routine Cardiovascular Exam Cardiovascular: Present RRR *Routine Abdominal Exam Abdominal: Present soft and normoactive bowel sounds; Absent tenderness *Routine Rectal Exam Patient deferred: visual exam *Routine Exam Patient deferred: penile exam *Routine Extremities Exam Extremities: Absent cyanosis, clubbing, edema or tenderness Comments: No muscle tenderness in arms or legs or torso *Routine Skin Exam Skin: Present intact and warm; Absent rash *Routine Neurological Exam Neurological: Present alert, oriented X3, moving all extremities and normal speech; Absent sensory deficit, motor deficit, altered mental status, abnormal gait or tremors Results Data Completed and Pending Labs on day of discharge: Labs from last 24 hours 08/29/24 08/28/24 08/28/24 08:37 17:30 10:50 WBC 5.5 D RBC 4.97 Hgb 14.1 Hct 43.9 MCV 88.3 MCH 28.4 MCHC 32.1 RDW 13.8 Plt Count 271 D MPV 10.0 Neut % (Auto) 51.3 Lymph % (Auto) 35.6 Atlantic % (Auto) 8.2 Eos % (Auto) 4.0 Baso % (Auto) 0.7 Neut # (Auto) 2.8 Lymph # (Auto) 2.0 [place] # (Auto) 0.5 Eos # (Auto) 0.2 Baso # (Auto) 0.0 Sodium 138 142 140 Potassium 4.4 3.8 4.0 Chloride 109 H 110 H 110 H Carbon Dioxide 20 L 25 26 Anion Gap 13.4 10.8 8.0 BUN 10 13 16 Creatinine 0.90 0.80 0.90 Estimated Creat Clear 171 188 167 Estimated GFR 105 120 105 Est GFR ( Amer) 127 145 127 Glucose 94 116 H D 85 Calcium 9.3 8.7 8.7 Magnesium 1.8 Total Bilirubin 1.1 0.2 AST 452 H* 541 H* ALT 181 H 179 H Alkaline Phosphatase 143 H 66 Total Creatine Kinase 31290 H* 14572 H* 76747 H* Total Protein 7.3 6.5 Albumin 4.6 4.3 D Globulin 2.7 2.2 Albumin/Globulin Ratio 1.7 2.0 H Hepatitis A IgM Ab Hep Bs Antigen Hep B Core IgM Ab Hepatitis C Antibody HCV RNA PCR Test Info 08/28/24 08/27/24 05:35 23:05 WBC RBC Hgb Hct MCV MCH MCHC RDW Plt Count MPV Neut % (Auto) Lymph % (Auto) Atlantic % (Auto) Eos % (Auto) Baso % (Auto) Neut # (Auto) Lymph # (Auto) [place] # (Auto) Eos # (Auto) Baso # (Auto) Sodium Potassium Chloride Carbon Dioxide Anion Gap BUN Creatinine Estimated Creat Clear Estimated GFR Est GFR ( Amer) Glucose Calcium Magnesium Total Bilirubin AST ALT Alkaline Phosphatase Total Creatine Kinase 79021 H* Total Protein Albumin Globulin Albumin/Globulin Ratio Hepatitis A IgM Ab Negative Hep Bs Antigen Negative Hep B Core IgM Ab Negative Hepatitis C Antibody Non reactive HCV RNA PCR Test Info Comment DS: Diagnosis Discharge Diagnosis (1) Rhabdomyolysis: Status: Acute Code(s): M62.82 - Rhabdomyolysis (2) ADHD: Status: Acute Code(s): F90.9 - Attention-deficit hyperactivity disorder, unspecified type (3) Depression: Status: Acute Code(s): F32.A - Depression, unspecified (4) Transaminitis: Status: Acute Code(s): R74.01 - Elevation of levels of liver transaminase levels Meds Home Medications and Allergies Home Medications ?Medication ?Instructions ?Recorded ?Confirmed ?Type bupropion HCl 100 mg tablet,12 hr 100 mg PO BID 30 days #60 ea 08/29/24 Rx sustained-release (Wellbutrin SR) New Prescriptions to Start Prescriptions: bupropion HCl [Wellbutrin SR] Venkata Dejesus Allergies Allergy/AdvReac Type Severity Reaction Status Date / Time No Known Allergies Allergy Verified 08/12/24 11:41 Discharge Plan Disposition Patient Disposition: Home, Self-Care Condition: Fair Discharge Order Discharge Orders: Discharge Order (Routine); Ordered 08/29/24 Ordered By: Venkata Dejesus Follow up Plan Follow up with: Prateek Bailey DO [Primary Care Provider] - 09/04/24 9:00 am Prescriptions/Medication Reconciliation: Changed bupropion HCl [Wellbutrin SR] 100 mg tablet sustained-release 12 hr 100 mg PO BID 30 Days Qty: 60 0RF Discontinued hydroxyzine HCl 25 mg tablet 25 - 50 mg PO HS PRN (Reason: Sleep/anxiety) Rx Instructions: 1-2 tablets as needed for sleep bupropion HCl 200 mg tablet sustained-release 12 hr 200 mg PO AM Other Ambulatory Orders: Creatine Kinase (Routine) Timeframe: 2 Days Facility: [facility] - Location: Laboratory Ordered By: Venkata Dejesus Comprehensive Metabolic Panel (Routine) Timeframe: 2 Days Facility: [facility] - Location: Laboratory Ordered By: Venkata Dejesus Problem Reconciliation Problems Reviewed?: Yes Patient Discharge Instructions ACTIVITY: Continue current activity DIET: continue same diet Patient Instructions: DI for Rhabdomyolysis Print Language: [place] Providers Primary Care Provider: Prateek Bailey Admit Provider: Venkata Dejesus Attending Provider: Venkata Dejesus
[2024-08-29 11:52] LABS: Creatine Kinase 29260 U/L (55-170)
--- NOTE | 2024-09-01 10:40 | SW/DCPLANNER ---
Spoke with patienton the phone. Patient stated that he is doing well. Patient stated that he is aware of his change in medicine. Patient stated that he has no concerns or questions at this time. Patient stated that he is aware of his upcoming appointment. Radha Briggs
== END 2024-08-29 12:19 | disposition home or self-care (01) ==
LOC: ER 23:04 → 2ND 08-28 00:56
PROVIDERS: Nurse Practitioner Family; Admitting Provider Internal Medicine Adolescent Medicine; Emergency Provider Emergency Medicine; PCP Internal Medicine; Visit Provider Internal Medicine Adolescent Medicine
DX: M62.82 Rhabdomyolysis (principal); F17.290 Nicotine dependence, other tobacco product, uncomplicated; Z79.899 Other long term (current) drug therapy; R74.01 Elevation of levels of liver transaminase levels
CPT/HCPCS: 36415; 80048; 80053; 80074; 81001; 82550; 83690; 83735; 85025; 86803; 87086; 99285; G0378; J7030; J7120

== ENCOUNTER 2024-08-31 12:48 | Outpatient (CLI) | payer BC, OTHER, SELFPAY ==
[2024-08-31 13:31] LABS: Alanine Aminotransferase 178 U/L (12-78); Albumin Level 5.2 g/dl (3.5-5.0); Albumin/Globulin Ratio 1.9 (1.1-1.8); Alkaline Phosphatase 59 U/L (38-126); Anion Gap 14.4 mEq/L (5-15); Aspartate Amino Transferase 171 U/L (17-59); Bilirubin,Total 0.4 mg/dl (0.2-1.3); Blood Urea Nitrogen 16 mg/dl (9-20); Calcium 10.3 mg/dl (8.4-10.2); Carbon Dioxide 27 mmol/L (22.0-30.0); Chloride 102 mmol/L (98-107); Estimated Glomerular Filt Rate 120 ml/min (>60); GFR (African American) 145 ML/MIN (>60); Globulin 2.7 g/dL (1.3-3.2); Glucose 89 mg/dl (74-100); Potassium 4.4 mmoL/L (3.5-5.1); Sodium 139 mmol/L (136-145); Total Protein,Serum 7.9 g/dl (6.3-8.2)
[2024-08-31 14:19] LABS: Creatine Kinase 5963 U/L (55-170)
== END 2024-08-31 23:59 | disposition home or self-care (01) ==
LOC: LAB 12:50
PROVIDERS: PCP Internal Medicine; Visit Provider Internal Medicine Adolescent Medicine
DX: M62.82 Rhabdomyolysis (principal); R74.01 Elevation of levels of liver transaminase levels
CPT/HCPCS: 80053; 82550